=== PATIENT | female | born 1975 | race American Indian/Alaskan Native ===

== ENCOUNTER 2019-05-08 12:27 | Emergency (ER) | payer BC ==
[2019-05-08 14:39] VITALS: BP 159/68
[2019-05-08] MEDS ORDERED: ONDANSETRON 4 MG/2 ML INJ IV ONE ×2 (14:42→17:17)
--- NOTE | 2019-05-08 14:46 | Emergency Department Report ---
Chief Complaint: Abdominal Pain Stated Complaint: ABD PAIN - HPI History of Present Illness: 44 yo AA F presents with Right upper and middle abdominal pain with radiation to the back. She has N/V, constipation and a history of indigestion. Sent by PCP to [facility] today and had her first appt. Sent via EMS from GI for further evaluation. She has been on bentyl from PCP. No other PMHX. She had a RUQ ultrasound done in April that was negative. - ROS Review of Systems: +Abd pain, back pain, N/V -Dysuria, vag bleeding or discharge, fever - Exam Vital Signs: Vital Signs 05/08/19 12:32 Temperature 97.3 F L Pulse Rate 94 H Respiratory 18 Rate Blood Pressure 159/68 O2 Sat by Pulse 100 Oximetry MSE screening note: Focused history and physical exam performed. Due to findings the following was ordered: CBC, CMP, Lipase, U/A, Preg test Antiemetic and analgesia To fast track for further evaluation and examination Patient discussed with doctor:: [facility] ED Disposition for MSE Disposition: PAT REG,TRIAGED-NO MSE Condition: Stable Instructions: Abdominal Pain (ED)
[2019-05-08 15:09] LABS: Bilirubin,Urine NEG (Negative); Blood,Urine NEG (Negative); Color,Urine Yellow (Yellow); Mucus,Urine FEW /HPF; Protein,Urine <15 mg/dL mg/dL (Negative); Urobilinogen,Urine < 2.0 mg/dL (<2.0)
[2019-05-08 15:38] LABS: Basophils # (Auto) 0.1 K/mm3 (0.0-0.1); Eosinophils % (Auto) 0.4 % (0.0-4.3); Hematocrit 31.9 % (30.3-42.9); Hemoglobin 10.1 gm/dl (10.1-14.3); Lymphocytes # (Auto) 1.8 K/mm3 (1.2-5.4); Lymphocytes % (Auto) 22.9 % (13.4-35.0); Mean Corpuscular HGB Conc 32 % (30-34); Mean Corpuscular Volume 70 fl (79-97); Monocytes # (Auto) 0.4 K/mm3 (0.0-0.8); Monocytes % (Auto) 4.8 % (0.0-7.3); Platelet Count 237 K/mm3 (140-440); Red Blood Count 4.53 M/mm3 (3.65-5.03)
[2019-05-08 15:52] LABS: Red Cell Distribution Width 21.6 % (13.2-15.2)
[2019-05-08] MEDS ORDERED: SODIUM CHLORIDE 0.9% 1000 ML 1,000 ML IV ONE (15:59)
[2019-05-08] MEDS ORDERED: KETOROLAC 30 MG/1 ML INJ IV ONE ×2 (15:59→17:16)
[2019-05-08 16:00] LABS: Alanine Aminotransferase 7 units/L (7-56); BUN/Creatinine Ratio 13; Blood Urea Nitrogen 12 mg/dL (7-17); Calcium 9.6 mg/dL (8.4-10.2); Hemolysis Index 3
--- NOTE | 2019-05-08 16:01 | Emergency Department Report ---
ED Abdominal Pain HPI - General Chief Complaint: Abdominal Pain Stated Complaint: ABD PAIN Time Seen by Provider: 05/08/19 15:16 Source: patient, EMS Mode of arrival: Wheelchair Limitations: No Limitations - History of Present Illness Initial Comments: This is a 44-year-old female with no prior medical history who presents to ED complaining of right-sided flank pain intermittently for about a month. She describes been as sharp in nature also complaining of nausea and vomiting. Patient also states that she is having upper abdominal pain describing as a gas- like feeling. Patient also states he is having some pain with burping. Patient stated that early last month she had an ultrasound of the abdomen done which was normal. MD Complaint: abdominal pain, flank pain - Related Data Previous Rx's Medication Instructions Recorded Last Taken Type Dicyclomine [Bentyl] 20 mg PO BID #30 tablet 05/08/19 Unknown Rx Famotidine [Pepcid] 20 mg PO BID #40 tablet 05/08/19 Unknown Rx Allergies Allergy/AdvReac Type Severity Reaction Status Date / Time Sulfa (Sulfonamide Allergy Hives Verified 05/08/19 12:29 Antibiotics) ED Review of Systems ROS: Stated complaint: ABD PAIN Other details as noted in HPI Comment: All other systems reviewed and negative ED Past Medical Hx - Past Medical History Previous Medical History?: No - Surgical History Additional Surgical History: LEFT OVARY REMOVED. TUBAL LIG - Social History Smoking Status: Never Smoker Substance Use Type: Alcohol - Medications Home Medications: Home Medications Medication Instructions Recorded Confirmed Last Taken Type Dicyclomine [Bentyl] 20 mg PO BID #30 tablet 05/08/19 Unknown Rx Famotidine [Pepcid] 20 mg PO BID #40 tablet 05/08/19 Unknown Rx ED Physical Exam - General Limitations: No Limitations General appearance: alert, in no apparent distress - Head Head exam: Present: atraumatic, normocephalic - Eye Eye exam: Present: normal appearance - ENT ENT exam: Present: mucous membranes moist - Neck Neck exam: Present: normal inspection - Respiratory Respiratory exam: Present: normal lung sounds bilaterally. Absent: respiratory distress - Cardiovascular Cardiovascular Exam: Present: regular rate, normal rhythm. Absent: systolic murmur, diastolic murmur, rubs, gallop - GI/Abdominal GI/Abdominal exam: Present: soft, normal bowel sounds. Absent: distended, tenderness, guarding, rebound, mass, bruit - Extremities Exam Extremities exam: Present: normal inspection, full ROM - Back Exam Back exam: Present: normal inspection, full ROM, CVA tenderness (R). Absent: tenderness, CVA tenderness (L) - Neurological Exam Neurological exam: Present: alert, oriented X3, normal gait - Psychiatric Psychiatric exam: Present: normal affect, normal mood - Skin Skin exam: Present: warm, dry, intact, normal color. Absent: rash ED Course Vital Signs 05/08/19 05/08/19 12:32 16:15 Temperature 97.3 F L Pulse Rate 94 H Respiratory 18 17 Rate Blood Pressure 159/68 O2 Sat by Pulse 100 Oximetry ED Medical Decision Making - Lab Data Result diagrams: 05/08/19 15:05 05/08/19 15:05 Laboratory Last Values WBC 7.7 K/mm3 (4.5-11.0) 05/08/19 15:05 RBC 4.53 M/mm3 (3.65-5.03) 05/08/19 15:05 Hgb 10.1 gm/dl (10.1-14.3) 05/08/19 15:05 Hct 31.9 % (30.3-42.9) 05/08/19 15:05 MCV 70 fl (79-97) L 05/08/19 15:05 MCH 22 pg (28-32) L 05/08/19 15:05 MCHC 32 % (30-34) 05/08/19 15:05 RDW 21.6 % (13.2-15.2) H 05/08/19 15:05 Plt Count 237 K/mm3 (140-440) 05/08/19 15:05 Lymph % (Auto) 22.9 % (13.4-35.0) 05/08/19 15:05 [place] % (Auto) 4.8 % (0.0-7.3) 05/08/19 15:05 Eos % (Auto) 0.4 % (0.0-4.3) 05/08/19 15:05 Baso % (Auto) 1.0 % (0.0-1.8) 05/08/19 15:05 Lymph # 1.8 K/mm3 (1.2-5.4) 05/08/19 15:05 [place] # 0.4 K/mm3 (0.0-0.8) 05/08/19 15:05 Eos # 0.0 K/mm3 (0.0-0.4) 05/08/19 15:05 Baso # 0.1 K/mm3 (0.0-0.1) 05/08/19 15:05 Seg Neutrophils % 70.9 % (40.0-70.0) H 05/08/19 15:05 Seg Neutrophils # 5.4 K/mm3 (1.8-7.7) 05/08/19 15:05 Sodium 141 mmol/L (137-145) 05/08/19 15:05 Potassium 4.1 mmol/L (3.6-5.0) 05/08/19 15:05 Chloride 104.4 mmol/L (98-107) 05/08/19 15:05 Carbon Dioxide 22 mmol/L (22-30) 05/08/19 15:05 Anion Gap 19 mmol/L 05/08/19 15:05 BUN 12 mg/dL (7-17) 05/08/19 15:05 Creatinine 0.9 mg/dL (0.7-1.2) 05/08/19 15:05 Estimated GFR > 60 ml/min 05/08/19 15:05 BUN/Creatinine Ratio 13 % 05/08/19 15:05 Glucose 91 mg/dL (65-100) 05/08/19 15:05 Calcium 9.6 mg/dL (8.4-10.2) 05/08/19 15:05 Total Bilirubin 0.20 mg/dL (0.1-1.2) 05/08/19 15:05 AST 18 units/L (5-40) 05/08/19 15:05 ALT 7 units/L (7-56) 05/08/19 15:05 Alkaline Phosphatase 59 units/L (35-129) 05/08/19 15:05 Total Protein 7.6 g/dL (6.3-8.2) 05/08/19 15:05 Albumin 4.0 g/dL (3.9-5) 05/08/19 15:05 Albumin/Globulin Ratio 1.1 % 05/08/19 15:05 Lipase 23 units/L (13-60) 05/08/19 15:05 HCG, Qual Negative (Negative) 05/08/19 15:05 Urine Color Yellow (Yellow) 05/08/19 Unknown Urine Turbidity Slightly-cloudy (Clear) 05/08/19 Unknown Urine pH 6.0 (5.0-7.0) 05/08/19 Unknown Ur Specific [place] 1.014 (1.003-1.030) 05/08/19 Unknown Urine Protein <15 mg/dl mg/dL (Negative) 05/08/19 Unknown Urine Glucose (UA) Neg mg/dL (Negative) 05/08/19 Unknown Urine Ketones Neg mg/dL (Negative) 05/08/19 Unknown Urine Blood Neg (Negative) 05/08/19 Unknown Urine Nitrite Neg (Negative) 05/08/19 Unknown Urine Bilirubin Neg (Negative) 05/08/19 Unknown Urine Urobilinogen < 2.0 mg/dL (<2.0) 05/08/19 Unknown Ur Leukocyte Esterase Sm (Negative) 05/08/19 Unknown Urine WBC (Auto) 4.0 /HPF (0.0-6.0) 05/08/19 Unknown Urine RBC (Auto) 2.0 /HPF (0.0-6.0) 05/08/19 Unknown U Epithel Cells (Auto) 7.0 /HPF (0-13.0) 05/08/19 Unknown Urine Mucus Few /HPF 05/08/19 Unknown - Medical Decision Making Fifth 24-year-old female presents with upper abdominal pain was secondary to acute gastritis. All labs are within normal limits. Urinalysis is normal. Patient received 1 L of fluids, pain medication and nausea medication in the ED. Vital signs are normal patient is in no acute distress. Patient did mention that she was [place] textile broker told to present to the ED to rule out an acute abdomen. I discussed with the patient at all her labs are normal there is no signs of acute infection the patient is to follow-up with textile broker for possible length endoscopy. Patient is mention that she had a normal ultrasound S week so scanning was not necessary in the ED today. All results were discussed with the patient and discussed the patient to follow up with her primary care physician as well as textile broker. Critical care attestation.: If time is entered above; I have spent that time in minutes in the direct care of this critically ill patient, excluding procedure time. ED Disposition Clinical Impression: Acute gastritis without bleeding Disposition: PAT REG,TRIAGED-NO MSE Is pt being admited?: No Does the pt Need Aspirin: No Condition: Stable Instructions: Gastritis (ED), Diet for Ulcers and Gastritis (ED), Abdominal Pain (ED) Additional Instructions: Make sure to follow up with the primary care physician as discussed. Take all your medications as you've been prescribed. If you have any worsening symptoms or develop new symptoms please return to ED immediately. Prescriptions: Dicyclomine [Bentyl] 20 mg PO BID #30 tablet Famotidine [Pepcid] 20 mg PO BID #40 tablet Referrals: [facility] [Provider Group] - 3-5 Days [facility] [Provider Group] - 3-5 Days Forms: Accompanied Note, Work/School Release Form(ED) Time of Disposition: 16:52
[2019-05-08] MEDS ORDERED: FAMOTIDINE 20 MG/2 ML INJ IV ONE (17:16)
== END 2019-05-08 17:29 | disposition home or self-care (01) ==
LOC: ED 12:27
DX: K29.00 Acute gastritis without bleeding (principal); Z98.890 Other specified postprocedural states; Z79.899 Other long term (current) drug therapy; Z88.2 Allergy status to sulfonamides
CPT/HCPCS: 36415; 80053; 81001; 83690; 84703; 85025; 96361; 96374; 96375; 99284; J1885; J2405; J7030

== ENCOUNTER 2020-04-16 05:56 | Inpatient (IN) | payer BC ==
[2020-04-14 10:53] LABS: Basophils # (Auto) 0.1 K/mm3 (0.0-0.1); Eosinophils # (Auto) 0.1 K/mm3 (0.0-0.4); Eosinophils % (Auto) 2.1 % (0.0-4.3); Hematocrit 36.4 % (30.3-42.9); Hemoglobin 12.1 gm/dl (10.1-14.3); Lymphocytes # (Auto) 1.2 K/mm3 (1.2-5.4); Lymphocytes % (Auto) 18.5 % (13.4-35.0); Mean Corpuscular HGB Conc 33 % (30-34); Mean Corpuscular Volume 82 fl (79-97); Monocytes # (Auto) 0.5 K/mm3 (0.0-0.8); Monocytes % (Auto) 7.3 % (0.0-7.3); Platelet Count 198 K/mm3 (140-440); Red Blood Count 4.43 M/mm3 (3.65-5.03); Red Cell Distribution Width 15.9 % (13.2-15.2)
[2020-04-14 12:03] LABS: BUN/Creatinine Ratio 9; Blood Urea Nitrogen 9 mg/dL (7-17); Calcium 9.4 mg/dL (8.4-10.2); Hemolysis Index 3
--- NOTE | 2020-04-14 14:17 | Anesthesia Consultation ---
Anesthesia Consult and Med Hx Date of service: 04/16/20 - Airway Anesthetic Teeth Evaluation: Good ROM Head & Neck: Adequate Mental/Hyoid Distance: Adequate Mallampati Class: Class I Intubation Access Assessment: Good - Pre-Operative Health Status ASA Pre-Surgery Classification: ASA2 Proposed Anesthetic Plan: General Nerve Block: TAP - Pulmonary Hx Smoking: No Hx Respiratory Symptoms: No (+2FS) Hx Sleep Apnea: No - Cardiovascular System Hx Hypertension: Yes - Central Nervous System Hx Psychiatric Problems: No - Gastrointestinal Hx Gastroesophageal Reflux Disease: Yes (Rare; no RX) - Hematic Hx Sickle Cell Disease: No - Other Systems Hx Alcohol Use: Yes (Occas) Hx Cancer: No - Additional Comments Anesthesia Medical History Comments: Despite kiwi allergy, pt denies latex allergy. Had lap chol in and reports panic attack in PACU
[2020-04-16] MEDS ORDERED: MIDAZOLAM 2 MG/2 ML INJ IV NR (06:00)
[2020-04-16] MEDS ORDERED: LACTATED RINGERS 1,000 ML IV SCH ×2 (06:00→14:00)
[2020-04-16] MEDS ORDERED: fentaNYL 100 MCG/2 ML INJ IV NR (06:00)
[2020-04-16] MEDS ORDERED: MAGNESIUM OXIDE 400 MG TAB PO NR (06:00)
[2020-04-16] MEDS ORDERED: GABAPENTIN 300 MG CAP PO NR (06:00)
[2020-04-16] MEDS ORDERED: ACETAMINOPHEN 500 MG TAB PO NR (06:00)
[2020-04-16] MEDS ORDERED: ceFAZolin/STERILE WATER 2 GM/20 ML SYRINGE IV NR (07:00)
[2020-04-16] MEDS ORDERED: LIDOCAINE (1%) 10 MG/1 ML VIAL 20 ML MDV ONE (07:02)
[2020-04-16] MEDS ORDERED: BUPIVACAINE-EPINEPHRINE/PF 0.25%-1:200,000 (30 ML) VIAL INFILTRATI ONE (07:02)
[2020-04-16] MEDS ORDERED: dexAMETHasone 4 MG/ML VIAL ONE (07:02)
[2020-04-16] MEDS ORDERED: ONDANSETRON 4 MG/2 ML INJ IV PRN ×2 (07:07→13:30)
[2020-04-16] MEDS ORDERED: HYDROmorphone 1 MG/1 ML INJ IV PRN (07:07)
--- NOTE | 2020-04-16 07:07 | Anesthesia Day of Surgery ---
Anesthesia Day of Surgery - Day of Surgery Patient Examined: Yes Patient H&P Reviewed: Yes Patient is NPO: Yes
[2020-04-16] MEDS ORDERED: NEOMY 40 MG/POLYMYXIN B 200,000 UNITS/ML (GU) AMPULE IR ONE ×2 (07:17→08:42)
--- NOTE | 2020-04-16 07:23 | History and Physical Report ---
History of Present Illness Date of examination: 04/16/20 Date of admission: 04/16/2020 Chief complaint: dysmenorrhea, AUB History of present illness: 45 yo c/b hx HTN (on meds) and migraines presenting for definitive surgery via robotic assisted hysterectomy for dysmenorrhea and abnormal menses. Patient with negative endometrial biopsies. Uterus normal sized. H/o LSO for hx ruptured ovarian cysts. PCP cleared given hx of CHTN. Past History Past Medical History: hypertension, migraines Past Surgical History: cholecystectomy, other (LSO (ruptured cysts), bilateral tubal ligation) Family/Genetic History: diabetes, heart disease, other (asthma, lung disease, prostate disease) Social history: no significant social history - Obstetrical History : 6 Para: 3 Hx # Term Pregnancies: 3 Spontaneous Abortions: 3 Number of Living Children: 3 Medications and Allergies Allergies Allergy/AdvReac Type Severity Reaction Status Date / Time apple Allergy Mouth/throat Verified 04/12/20 12:55 itches ramirez Allergy Mouth/throat Verified 04/12/20 12:55 itches corn Allergy Found on Verified 04/12/20 12:55 testing kiwi Allergy Mouth/throat Verified 04/12/20 12:55 itches peach Allergy Mouth/throat Verified 04/12/20 12:55 itches pear Allergy Mouth/throat Verified 04/12/20 12:55 itches Sulfa (Sulfonamide Allergy Hives Verified 04/12/20 12:55 Antibiotics) wheat Allergy Found on Verified 04/12/20 12:55 testing whey Allergy Found on Verified 04/12/20 12:55 testing nectarine Allergy Mouth/throat Uncoded 04/12/20 12:55 itches Home Medications Medication Instructions Recorded Confirmed Last Taken Type Triamterene/Hydrochlorothiazid 1 each PO DAILY 04/12/20 04/12/20 Unknown History [Triamterene-Hctz 50-25 mg Cap] Active Meds: Active Medications Acetaminophen (Acetaminophen 500 Mg Tab) 1,000 mg PO ONCE NR Stop: 04/16/20 20:00 Fentanyl (Fentanyl 100 Mcg/2 Ml Inj) 100 mcg IV ONCE NR Stop: 04/16/20 20:00 Gabapentin (Gabapentin 300 Mg Cap) 600 mg PO PREOP NR Stop: 04/16/20 20:00 Hydromorphone HCl (Hydromorphone 1 Mg/1 Ml Inj) 0.5 mg IV Q10MIN PRN PRN Reason: Pain , Severe (7-10) Stop: 04/16/20 22:00 Lactated Ringer's (Lactated Ringers) 1,000 mls @ 125 mls/hr IV DIRECT ESTEFANI Magnesium Oxide (Magnesium Oxide 400 Mg Tab) 400 mg PO ONCE NR Stop: 04/16/20 20:00 Midazolam HCl (Midazolam 2 Mg/2 Ml Inj) 2 mg IV PREOP NR Stop: 04/16/20 23:59 Ondansetron HCl (Ondansetron 4 Mg/2 Ml Inj) 4 mg IV ONCE PRN PRN Reason: Nausea And Vomiting Stop: 04/16/20 14:00 Review of Systems All systems: negative (expect HPI) - Vital Signs Vital signs: Vital Signs Temp Pulse Resp BP Pulse Ox 98.2 F 72 20 144/98 99 04/14/20 10:30 04/14/20 10:30 04/14/20 10:30 04/14/20 10:30 04/14/20 10:30 Temp Pulse Resp BP Pulse Ox 98.0 F 96 H 6 L 123/84 99 04/16/20 06:15 04/16/20 06:15 04/16/20 06:15 04/16/20 06:15 04/16/20 06:15 - Physical Exam Cardiovascular: Regular rate, Normal S1 Lungs: Positive: Clear to auscultation, Normal air movement Abdomen: Positive: normal appearance, normal bowel sounds Results Result Diagrams: 04/14/20 10:30 04/14/20 10:30 All other labs normal. Assessment and Plan - Patient Problems (1) Dysmenorrhea Current Visit: Yes Status: Acute Plan to address problem: To OR for robotic assisted laparoscopic hysterectomy, right salpingectomy for dysmenorrhea and abnormal uterine bleeding. Hx LSO for ruptured ovarian cysts --Patient counselled at length regarding risks/benefits of surgical management --Consented in chart --Anticipate admission overnight
[2020-04-16] MEDS ORDERED: MIDAZOLAM 2 MG/2 ML INJ ONE (07:54)
[2020-04-16] MEDS ORDERED: NEOSTIGMINE 10MG/10 ML INJ MDV ONE (07:59)
[2020-04-16] MEDS ORDERED: propofoL 200 MG/20 ML VIAL IV ONE (07:59)
[2020-04-16] MEDS ORDERED: ROCURONIUM 50 MG/5 ML INJ IV ONE (07:59)
[2020-04-16] MEDS ORDERED: fentaNYL 100 MCG/2 ML INJ ONE (07:59)
[2020-04-16] MEDS ORDERED: PHENYLEPHRINE/NS 1,000 MCG/10 ML SYRINGE (OR USE) IV ONE (07:59)
[2020-04-16] MEDS ORDERED: LIDOCAINE MPF (2%) 20 MG/1 ML VIAL 5 ML ONE (07:59)
[2020-04-16] MEDS ORDERED: GLYCOPYRROLATE 0.4 MG/2 ML INJ ONE (07:59)
[2020-04-16] MEDS ORDERED: SUCCINYLCHOLINE CHLORIDE 200 MG/10 ML INJ MDV ONE (07:59)
[2020-04-16] MEDS ORDERED: ceFAZolin/Water 2 GM/20 ML 2 GM/20 ML SYRINGE IV NR (08:00)
[2020-04-16] MEDS ORDERED: SODIUM CHLORIDE 0.9% IRR 1,500 ML BOTTLE IR ONE (08:42)
[2020-04-16] MEDS ORDERED: SODIUM CHLORIDE 0.9% IRRIG SOLN 2000 ML IR ONE (08:42)
[2020-04-16] MEDS ORDERED: ceFAZolin 1 GM VIAL ONE (11:44)
[2020-04-16] MEDS ORDERED: HYDROmorphone 1 MG/1 ML INJ ONE (12:18)
--- NOTE | 2020-04-16 12:39 | Procedure Note ---
Date of procedure: 04/16/20 Pre-op diagnosis: dysmenorrhea, abnormal uterine bleeding Post-op diagnosis: same Procedure: 1. Abnormal uterine bleeding, dysmenorrhea Postoperative diagnosis: Same Operation performed: 1. Exam under anesthesia 2. Robot assisted total laparoscopic hysterectomy 4. Right Salpingectomy Surgeon: Noemí Ravi Pyridine Operator: Graciela Cade Anesthesia: General endotracheal anesthesia EBL 350 cc IVF 1400cc UOP 250 cc Pathology specimens: 1. Uterine corpus and cervix 2. Right fallopian tube Complications: none Disposition and condition: To the PACU in stable condition Findings: 1. 8 wk size mobile uterus 2. Surgically absent left tube and ovary 3. R fallopian tube with Filshie Clip in place 4. Presumed left Filshie Clip located free in the posterior culdesac 5. Surgically absent gallbladder 6. Normal appearing liver and upper abdomen Statement of Medical Necessity: 45 yo with history of abnormal uterine bleeding and dysmenorrhea. Patient medically complicated by HTN on medication. Patient tried various medical options, however she continued to have symptoms. The procedure risk, benefits, indications and alternatives were reviewed with patient. She desired definitive surgical management and declined further medical management of her condition. Description of operation: After obtaining informed consent the patient was taken to the operating room where satisfactory general endotracheal anesthesia was established. The patient was placed in supine position ensuring proper positioning and cushioning to avoid nerve injury. The arms were tucked at the beginning of the procedure. An exam under anesthesia was performed with the findings noted below. She was prepped and draped in the usual sterile fashion. A Mansfield catheter was placed. A large VCare manipulator was placed without difficulty and sutured to the cervix anteriorly and posteriorly. Starting with the accessory port, a 8 mm incision was made at the left midclavicular line and a 5 mm Airseal trocar was placed without difficulty. Pneumoperitoneum was obtained to 15L CO2. The abdomen was inspected with the findings noted above. Next, the 12 mm robotic trocar was placed at the umbilicus for the camera port. Next, a 8 mm robotic trocar was placed in the left lateral aspect of the abdomen, superior and medial to the left ASIS. The last 8mm robotic trocar was placed on contralateral right side in a similar fashion. The patient was then placed in steep Trendelenburg position to allow for the intestines to enter into the upper abdomen. Next, the robot was docked with the patient that difficulty. First, the ureters were identified bilaterally with peristalsis noted. Using the prograsp grasper and vessel sealer grasper, the right fallopian tube was followed out to its fimbriated end and transected to the proximal uterine aspect of the tubal segment left uncut until the end of procedure to be removed with the uterine corpus. The left adnexa was noted to be surgically absent. The free left Filshie Clip was removed through the accessory port. Next, the round ligament was transected and the utero ovarian ligament was transected on the left side of the uterus. The broad ligament was skeletonized down to the uterine vessels to allow the ureter to fall laterally from the operative site. The same procedure was performed on contralateral side. Next, the anterior bladder flap was developed using monopolar scissors and the prograsp grasper. The bladder was dissected off of the anterior uterine wall at the vesicouterine reflection to the point past the cup of the Vcare device. Next, the posterior flap was created dissecting down past the cup of the Vcare posteriorly. Using a monopolar scissor, the colotomy was started anteriorly down to the green cup of the Vcare device. The colpotomy was extended laterally prior to reaching the uterine vessels. The posterior compartment was created using the monopolar scissor down to the green cup of the Vcare extending laterally prior to encountering the uterine vessels. Next, the left uterine vessels were transected using the vessel sealer down to the green cup of the Vcare device. Same procedure performed on contralateral side and the remainder of the colotomy was completed using monopolar scissors with the entirety of the uterus cervix transected. The pathology was then removed from the abdominal cavity and the remaining surgical site was inspected for hemostasis. The pneumoperitoneum was temporarily reduced to ensure hemostasis at the operative site. With hemostasis confirmed the pneumoperitoneum was returned to 15 L CO2. The colpotomy was closed using the Kamar needle driver merchandiser and prograsp grasper with Vicryl V-Loc suture starting on the right lateral aspect of the colpotomy ensuring to incorporate the vaginal mucosa anteriorly and posteriorly with the uterosacral ligaments on the lateral aspect. The vaginal cuff was closed in a running fashion with 3 V-Loc sutures going from left to right after the vagianl cuff was closed for stability and integrity of the repair. Paolo was applied to the surgical base with hemostasis noted. The robot was undocked. The integrity of the vaginal cuff was confirmed with bimanual exam while inspecting the intra- abdominal aspect with the laparoscopic camera. The ureters were once again identified at the end procedure with peristalsis noted. With the integrity vaginal cuff confirmed, the 12 mm camera trocar was removed. The George Alonso closure device was used in order to close the 12 mm trocar port the fascial level. The patient was returned to dorsal supine position. The remaining trochars were removed without difficulty and the pneumoperitoneum was reduced. The laparoscopic incisions were closed with 4-0 Monocryl and dressed with Dermabond. The patient was extubated without difficulty and taken to recovery room in stable condition. There were no surgical anesthetic complications. Anesthesia: GETA Surgeon: NOEMÍ RAVI JR Pyridine Operator: ATTILA CADE Estimated blood loss: other (350 cc) IV fluids: 1,400 Urine output: 250 Pathology: list (uterine corpus and cervix, Right fallopian tube) Specimen disposition: to lab Condition: stable Disposition: PACU
[2020-04-16] MEDS: KETOROLAC 30 MG/1 ML INJ IV SCH ×2 (13:00→18:35)
[2020-04-16] MEDS ORDERED: MORPHINE 4 MG/1 ML INJ IV PRN (13:30)
[2020-04-16] MEDS ORDERED: oxyCODONE /ACETAMINOPHEN 5-325MG TAB PO PRN (13:30)
[2020-04-16] MEDS ORDERED: MAGNESIUM HYDROXIDE (MOM) ORAL LIQD UDC PO PRN (13:30)
[2020-04-16] MEDS ORDERED: METOCLOPRAMIDE 10 MG/2 ML INJ IV PRN (13:30)
[2020-04-16] MEDS ORDERED: NALOXONE 0.4 MG/1 ML INJ IV PRN (13:30)
[2020-04-16] MEDS ORDERED: ONDANSETRON 4 MG ODT TAB PO PRN (13:30)
[2020-04-16] MEDS ORDERED: PROMETHAZINE 25 MG RECT SUPP PR PRN (13:30)
[2020-04-16] MEDS ORDERED: IBUPROFEN 800 MG TAB PO PRN (14:00)
--- NOTE | 2020-04-16 15:16 | Post Anesthesia Evaluation ---
- Post Anesthesia Evaluation Patient Participated: Yes Airway Patent: Yes Stable Respiratory Function: Yes Nausea/Vomiting: No Temp > 96.8F: Yes Pain Manageable: Yes Adequeate Hydration: Yes Anesthesia Complications: No
[2020-04-17] MEDS: KETOROLAC 30 MG/1 ML INJ IV SCH ×2 (02:04→06:13)
[2020-04-17 03:51] LABS: Basophils % (Auto) 0.1 % (0.0-1.8); Hematocrit 28.8 % (30.3-42.9); Hemoglobin 9.8 gm/dl (10.1-14.3); Lymphocytes % (Auto) 7.4 % (13.4-35.0); Mean Corpuscular HGB Conc 34 % (30-34); Mean Corpuscular Volume 82 fl (79-97); Monocytes # (Auto) 0.9 K/mm3 (0.0-0.8); Monocytes % (Auto) 6.8 % (0.0-7.3); Platelet Count 181 K/mm3 (140-440); Red Blood Count 3.53 M/mm3 (3.65-5.03); Red Cell Distribution Width 16.2 % (13.2-15.2)
--- NOTE | 2020-04-17 06:45 | Progress Note ---
Assessment and Plan POD#1 Robotic assist laparoscopic total hysterectomy and right salpingectomy doing well 1. D/C home later today with prescriptions already written by Dr. Phelan 2. F/U office in [address] [place] [address] Dr. Phelan All questions encouraged and answered Subjective Date of service: 04/17/20 Principal diagnosis: s/p Robotic laparoscopic total hysterectomy and right salpingectomy Interval history: pt has no complaints, pain controlled with meds, ambulant and moya cath removed. Pt has passed gas and tolerating regular diet. Denies N/V/F/C and denies vaginal bleeding. pt wants to go home and will take milk of magnesia prior to discharge Objective - Constitutional Vitals: Vital Signs - 12hr 04/16/20 04/17/20 04/17/20 20:37 01:54 02:04 Temperature 97.7 F 98.0 F Pulse Rate 80 78 Respiratory 16 16 16 Rate Blood Pressure 115/72 105/68 O2 Sat by Pulse 99 99 Oximetry 04/17/20 04/17/20 05:39 06:13 Temperature 98.2 F Pulse Rate 80 Respiratory 18 16 Rate Blood Pressure 101/62 O2 Sat by Pulse 99 Oximetry General appearance: Present: no acute distress - Breasts Breasts: deferred - Cardiovascular Rhythm: regular - Gastrointestinal General gastrointestinal: Present: non-tender, normal bowel sounds, other (All 3 ports hemostatic with dermabond in place) - Genitourinary Female genitourinary: other (pt states no bleeding and she's not wearing a pad) - Neurologic Neurologic: CNII-XII intact - Psychiatric Psychiatric: appropriate mood/affect - Labs CBC & Chem 7: 04/17/20 03:19 04/14/20 10:30 Labs: Abnormal lab results 04/17/20 Range/Units 03:19 WBC 13.3 H (4.5-11.0) K/mm3 RBC 3.53 L (3.65-5.03) M/mm3 Hgb 9.8 L (10.1-14.3) gm/dl Hct 28.8 L D (30.3-42.9) % RDW 16.2 H (13.2-15.2) % Lymph % (Auto) 7.4 L (13.4-35.0) % Lymph # (Auto) 1.0 L (1.2-5.4) K/mm3 Sauk # (Auto) 0.9 H (0.0-0.8) K/mm3 Seg Neutrophils % 85.7 H (40.0-70.0) % Seg Neutrophils # 11.4 H (1.8-7.7) K/mm3 Medications & Allergies - Medications Allergies/Adverse Reactions: Allergies apple Allergy (Verified 04/12/20 12:55) Mouth/throat itches ramirez Allergy (Verified 04/12/20 12:55) Mouth/throat itches corn Allergy (Verified 04/12/20 12:55) Found on testing kiwi Allergy (Verified 04/12/20 12:55) Mouth/throat itches peach Allergy (Verified 04/12/20 12:55) Mouth/throat itches pear Allergy (Verified 04/12/20 12:55) Mouth/throat itches Sulfa (Sulfonamide Antibiotics) Allergy (Verified 04/12/20 12:55) Hives wheat Allergy (Verified 04/12/20 12:55) Found on testing whey Allergy (Verified 04/12/20 12:55) Found on testing nectarine Allergy (Uncoded 04/12/20 12:55) Mouth/throat itches Home Medications: Home Medications Medication Instructions Recorded Confirmed Last Taken Type Triamterene/Hydrochlorothiazid 1 each PO DAILY 04/12/20 04/16/20 04/15/20 08:00 History [Triamterene-Hctz 50-25 mg Cap] Ibuprofen [Motrin 800 MG tab] 800 mg PO Q8H PRN #30 tablet 04/16/20 Unknown Rx oxyCODONE /ACETAMINOPHEN [Percocet 1 tab PO Q6H PRN #30 tablet 04/16/20 Unknown Rx 5/325 mg] Active Medications: Generic Name Dose Route Start Last Admin Trade Name Freq PRN Reason Stop Dose Admin Bisacodyl 10 mg 04/16/20 13:30 Bisacodyl 10 Mg Rect Supp [place] QDAY PRN Constip unreliev by MOM/or NPO Lactated Ringer's 1,000 mls @ 75 mls/hr 04/16/20 14:00 04/17/20 02:04 Lactated Ringers IV 75 mls/hr DIRECT ESTEFANI Administration Ibuprofen 800 mg 04/16/20 14:00 Ibuprofen 800 Mg Tab PO Q8H PRN Pain, Mild (1-3) Ketorolac Tromethamine 30 mg 04/16/20 13:00 04/17/20 06:13 Ketorolac 30 Mg/1 Ml Inj IV 04/17/20 07:01 30 mg Q6H ESTEFANI Administration Magnesium Hydroxide 30 ml 04/16/20 13:30 04/17/20 06:36 Magnesium Hydroxide (Mom) Oral Liqd Udc PO 30 ml Q4H PRN Administration Constipation Metoclopramide HCl 10 mg 04/16/20 13:30 Metoclopramide 10 Mg/2 Ml Inj IV Q6H PRN Nausea And Vomiting Morphine Sulfate 4 mg 04/16/20 13:30 04/16/20 16:36 Morphine 4 Mg/1 Ml Inj IV 4 mg Q4H PRN Administration Pain , Severe (7-10) Naloxone HCl 0.1 mg 04/16/20 13:30 Naloxone 0.4 Mg/1 Ml Inj IV Q2MIN PRN Res Rate </= 8 or 02 SAT < 92% Ondansetron HCl 4 mg 04/16/20 13:30 04/16/20 16:36 Ondansetron 4 Mg Odt Tab PO 4 mg Q8H PRN Administration Nausea And Vomiting Ondansetron HCl 4 mg 04/16/20 13:30 Ondansetron 4 Mg/2 Ml Inj IV Q8H PRN Nausea And Vomiting Oxycodone/Acetaminophen 1 tab 04/16/20 13:30 Oxycodone /Acetaminophen 5-325mg Tab PO Q6H PRN Pain, Moderate (4-6) Promethazine HCl 25 mg 04/16/20 13:30 Promethazine 25 Mg Rect Supp W[place] Q6H PRN Nausea And Vomiting Triamterene/Hydrochlorothiazide 1 each 04/17/20 10:00 Triamter/Hctz 37.5-25 Mg [facility]
[2020-04-17 07:42] LABS: Calcium 8.9 mg/dL (8.4-10.2)
[2020-04-17] MEDS ORDERED: TRIAMTER/HCTZ 37.5-25 MG TAB PO SCH (10:00)
[2020-04-17 12:43] VITALS: BP 106/66
--- NOTE | 2020-04-17 22:30 | Discharge Summary ---
Providers - Providers Date of Admission: 04/16/20 12:30 Date of discharge: 04/17/20 Attending physician: ATTILA CADE Primary care physician: LIBIA HANSEN NP Hospitalization Procedure details: Robotic assisted total hysterectomy and right salpingectomy Hospital course: Pt admitted on 04/16/19 and had uncomplicated robotic assisted total hysterectomy and was kept overnight. pt had good pain control, passed flatus, no vaginal bleeding, tolerated diet and voided without difficult. Pt passed flatus and discharged home on post op day 1. The incision ports were clean and dry with dermabond. All questions encouraged and answered Condition at discharge: Good Disposition: DC-01 TO HOME OR SELFCARE Plan - Discharge Medications Prescriptions: Ibuprofen [Motrin 800 MG tab] 800 mg PO Q8H PRN #30 tablet PRN Reason: Pain, Mild (1-3) oxyCODONE /ACETAMINOPHEN [Percocet 5/325 mg] 1 tab PO Q6H PRN #30 tablet PRN Reason: Pain, Moderate (4-6) - Provider Discharge Summary Additional instructions: [] Smoking cessation referral if applicable(refer to patient education folder for contact #) [] Refer to [facility] Booklet Call your doctor immediately for: * Fever > 100.5 * Heavy vaginal bleeding ( >1 pad per hour) * Severe persistent headache * Shortness of breath * Reddened, hot, painful area to leg or breast * Drainage or odor from incision. * Keep incision clean and dry at all times and follow doctor's instructions regarding bathing/showering - Follow up plan Follow up: NOEMÍ RAVI JR, MD [Staff Physician] - 14 Days Forms: [facility] Discharge Summary
== END 2020-04-17 13:05 | disposition home or self-care (01) | DRG 743 ==
LOC: OR 05:56 → OB 12:30
PROVIDERS: ADMIT Obstetrics & Gynecology; ATTEND Obstetrics & Gynecology
PROC: 0UT94ZZ Resection of Uterus, Percutaneous Endoscopic Approach (ICD-10-PCS; principal; 2020-04-16)
PROC: 0UT54ZZ Resection of Right Fallopian Tube, Percutaneous Endoscopic Approach (ICD-10-PCS; 2020-04-16)
PROC: 8E0W4CZ Robotic Assisted Procedure of Trunk Region, Percutaneous Endoscopic Approach (ICD-10-PCS; 2020-04-16)
DX: N94.6 Dysmenorrhea, unspecified (principal); I10 Essential (primary) hypertension; G40.909 Epilepsy, unspecified, not intractable, without status epilepticus; Z90.49 Acquired absence of other specified parts of digestive tract; Z83.3 Family history of diabetes mellitus; Z82.49 Family history of ischemic heart disease and other diseases of the circulatory system; Z90.710 Acquired absence of both cervix and uterus; Z82.5 Family history of asthma and other chronic lower respiratory diseases; Z88.2 Allergy status to sulfonamides; Z91.018 Allergy to other foods; Z79.899 Other long term (current) drug therapy
CPT/HCPCS: 36415; 64450; 80048; 81025; 84703; 85025; 86850; 86900; 86901; 88305; 88307; G0378; A4217; J0330; J0690; J1100; J1170; J1885; J2250; J2270; J2370; J2405; J2704; J2710; J3010; J7120; Q0162